=== PATIENT | female | born 1935 | race Caucasian/White ===

== ENCOUNTER 2016-11-09 07:15 | Inpatient (IN) | payer BC ==
[~2016-11-09 07:15] MED LIST: ACETAMINOPHEN 1000MG/100 ML PREMIX IV ONE; CEFAZOLIN 2 Gram 50 ML IVPB ONE; FAMOTIDINE 20MG TABLET PO ONE; MECLIZINE 25 MG TABLET PO ONE; METOCLOPRAMIDE 10 MG TABLET PO ONE
--- NOTE | 2016-11-09 07:45 | Rehab Joint Replacement Pre-Op ---
Rehab Joint Replacement Pre-Op - Pre-Op Visit Reviewed Items Scheduled for Post Op Visit: No Pre-Op Visit Comment: Pt anticipates transferring to [facility] for rehab after inpatient hospitalization. Preston Hose/Garment Measurement TKR - Knee High: Yes Exercise Reviewed: Yes Stair Climbing: Yes (Has basement stairs, laundry in basement.) Cane/Walker/Crutch Training: Yes Vend Equipment - Cane or Walker and OT Kit: N/A (Pt has her own walker from previous RTKA 2 yrs ago) List of Venders in the Area: No Shower Chair Transfers: Yes Car Transfers: Yes Bed Transfers: Yes Medical History Forms Issued: No Functional Scale Forms Issued: No
[2016-11-09] MEDS ORDERED: HYDROCODONE/APAP 5/325MG TABLET PO PRN (11:30)
[2016-11-09] MEDS ORDERED: MAGNESIUM HYDROXIDE 30 ML UDC PO PRN (11:30)
[2016-11-09] MEDS ORDERED: METOCLOPRAMIDE HCL 10 MG/2 ML VIAL IVP PRN (11:30)
[2016-11-09] MEDS ORDERED: DIPHENHYDRAMINE HCL 25 MG CAPSULE PO PRN (11:30)
[2016-11-09] MEDS ORDERED: ZOLPIDEM TARTRATE 5 MG TABLET PO PRN (11:30)
[2016-11-09] MEDS ORDERED: SENNOSIDES/DOCUSATE SODIUM UD CAPSULE PO PRN (11:30)
[2016-11-09] MEDS ORDERED: ACETAMINOPHEN/CODEINE TABLET PO PRN (11:30)
[2016-11-09] MEDS ORDERED: AL HYDROX/MAG HYDROX 30ML UD PO PRN (11:30)
[2016-11-09] MEDS: RINGERS SOLUTION,LACTATED 1,000 ML IV SCH (12:21)
[2016-11-09] MEDS ORDERED: TRANEXAMIC ACID 1,000 MG in 0.9 % SODIUM CHLORIDE 100ML 100 ML IVPB ONE (13:30)
[2016-11-09] MEDS: HYDROCODONE/APAP 5/325MG TABLET PO PRN (13:37)
[2016-11-09] MEDS: RIVASTIGMINE 4.6 MG TD SCH (13:38)
[2016-11-09] MEDS: PREVAGEN PO SCH (13:38)
[2016-11-09] MEDS ORDERED: TRANEXAMIC ACID 1,000 MG/10 ML ML IV ONE (13:39)
[2016-11-09] MEDS: CITALOPRAM 20 MG PO SCH (13:39)
[2016-11-09] MEDS ORDERED: BUPIVACAINE LIPOSOME 266MG/20ML VIAL IV ONE (13:39)
[2016-11-09] MEDS ORDERED: BUPIVACAINE 0.25% W/EPI MPF 30ML VIAL IVP ONE ×2 (13:39→14:50)
[2016-11-09] MEDS: SIMVASTATIN 10 MG PO SCH (13:40)
[2016-11-09] MEDS: HYDROMORPHONE HCL 1 MG/ML CPJ IVP PRN ×2 (13:51→17:02)
[2016-11-09] MEDS ORDERED: FENTANYL PF 100MCG/2ML VIAL IV ONE (14:31)
[2016-11-09] MEDS ORDERED: MIDAZOLAM HCL 2MG/2ML VIAL IV ONE (14:31)
[2016-11-09] MEDS ORDERED: *PACU ONLY* KETAMINE HCL 10 MG/ML (20ML) VIAL IV ONE (14:31)
--- NOTE | 2016-11-09 14:45 | Rehab Evaluation ---
Patient Information - Patient Information Diagnosis: OA with left TKA Ordered Treatment: PT Evaluate and Treat Status: Initial Evaluation Surgery: Yes (TKA left) Date of Surgery: 11/09/16 Past Medical/Surgical Hx: PAST MEDICAL/SURGICAL HISTORY Past Surgical History RTKA; appy, lung sx 93; shoulder; PMH - Respiratory Hx Respiratory Disorders Yes Hx Bronchitis Yes Hx Chronic Obstructive Yes Pulmonary Disease (COPD) Hx Pneumonia Yes: nothing recently Hx of URI Yes: a little cough yet & runny nose Hx of SOB Yes: exertional Comment: lung CA PMH - Cardiovascular Hx Cardiovascular Disorders Yes Hx Chest Pain Yes: "just from my cold"-none since 1 month ago Hx Deep Vein Thrombosis Yes: left calf 8 yrs ago Hx Edema Yes: left ankle slightly Hx Hypertension Yes Hx Palpitations Yes Exercise Tolerance Fair Comment: high chol PMH - Neuro Hx Neurological Disorders Yes Hx Dementia Yes Hx Dizziness Yes Hx Weakness Yes: both legs PMH - GI Hx Gastrointestinal Disorders Yes Hx Diverticulitis Yes Hx Gastroesophageal Reflux Yes Hx Hiatal Hernia Yes Hx Irritable Bowel Yes: not often Hx Weight Loss/Weight Gain Yes: 15 lbs /3-4 months PMH - Hx Genitourinary Disorders Yes Hx Bladder Problem Yes: "weak bladder"- wears depends PMH - Endocrine Hx Endocrine Disorders Yes Hx Thyroid Disease Yes PMH - Musculoskeletal Hx Musculoskeletal Disorders Yes Hx Arthritis Yes Hx Gout Yes Hx Osteoporosis No: "left arm" Comment: pt had osteomyelitis in 1968 (left arm) PMH - Psych Hx Psychiatric Problems Yes Hx Depression Yes PMH - Hematology/Oncology Hx Hematology/Oncology Yes Disorders Hx Bruising Yes: bruises easily Hx Cancer Yes: left lower lung resection Hx Blood Transfusion Reaction No Precautions: [place], Fall - Time With Patient Total Time Spent With Patient (Min): 30 Treatment Procedures: Detail (Patient seen in room and semi-seated in bed with CPM, cryocuff and compressive pads in place. Says willing to try exercises and sitting edge of bed. Still cannot feel left leg yet. Removed CPM, cryocuff and compressive pads then reviewed knee exercises with patient and assisted with heel slide and SLR for several reps. Patient required only min assist for supine to sit edge of bed with trapeze and FWW close. Agreed to try standing briefly and do weight shifting then sat edge of bed. Became lightheaded so got patient lying down again and put cold cloth on head and neck. Flattened patient out as became nauseous then replaced CPM, cryocuff, compressive pads and nursing came in to give pain med and something for nausea. Got patient warm blanket and nursing present to replace tray table after vitals taken as patient's blood pressure initially a little high.) Subjective Information - Subjective Information Per Patient (Patient and gave details of steps: patient has 3 to four steps to negotiate to get into house. Has everything else needs for going home with 's assist.) Objective Data - Pain Pain Present: Yes Pain Scale Used: Numeric (1 - 10) (4/10) - Mental Status Patient Orientation: Oriented x3 - Visual Perception Appears within normal limits for therapeutic activities - ROM Within normal limits (Except left knee 60 degrees flexion.) - Strength/Tone Within normal limits (Except left knee: quads 3-/5) - Coordination Appears within normal limits for therapeutic activities - Bed Mobility Needs Assist (Needed slight assist up in bed and moving with all attachments.) - Transfers Needs Assist (Needed slight assist for supine to sit to stand and back into bed : trapeze, FWW and PT) - Balance Balance Sitting: Good Balance Standing: Good - Sensation Intact - Gait Detail (Just stood today bedside, no gait. WBAT left LE.) - Special Tests No Therapy Assessment - Therapy Assessment Detail (Patient doing very well and should progress quickly so can go home tomorrow or day after.) Patient Education - Patient Education Teaching Topic: Equipment Use, Exercise/Activity Response: Return Demonstration Teaching Method: Demonstration Teaching Recipient: Patient, Family Barriers To Learning: None Problem List - Problem List Physical Therapy Problem List: Detail (Some issues with mobility yet, transfers , gait, stairs: deficits that should progressively improve.) Goals - Goals Physical Therapy Goals: 1. Patient will demonstrate good bed mobility and transfers before discharge home. 2. Patient will be able to demonstrate gait with FWW appropriate distances to go home. 3. ROM left knee will be appropriate for comfort to go home. Prognosis - Prognosis Good (Patient should be able to meet goals with treatment BID tomorrow and possibly Satur am if needed so safe to go home.) Plan - Plan Physical Therapy Plan: Patient to be seen BID tomorrow and possibly Sunday am if needed for safe transition to home.
[2016-11-09] MEDS: CEFAZOLIN 2 Gram 2 GM in DEXTROSE 1 BAG IVPB SCH ×2 (17:01→23:47)
[2016-11-09] MEDS: GABAPENTIN 300 MG PO SCH ×2 (17:02→21:41)
[2016-11-09] MEDS: ASPIRIN 325 MG TAB ENTERIC-COATED PO SCH (21:41)
[2016-11-10] MEDS: RINGERS SOLUTION,LACTATED 1,000 ML IV SCH ×2 (03:30→21:23)
[2016-11-10] MEDS: CEFAZOLIN 2 Gram 2 GM in DEXTROSE 1 BAG IVPB SCH ×2 (04:25→09:34)
[2016-11-10 06:38] LABS: HEMOGLOBIN 11.1 gm/dl (11.6-16.0); MEAN CELL VOLUME 89.2 fl (81-97); MEAN CORPUSCULAR HEMOGLOBIN 29.1 pg (27-33); MEAN CORPUSCULAR HGB CONC 32.6 g/dl (32-36); MEAN PLATELET VOLUME 8.8 fl (7.4-10.4); PLATELET COUNT 344 K/uL (130-400); RED BLOOD COUNT 3.81 M/uL (3.80-5.40); RED CELL DISTRIBUTION WIDTH 13.9 % (11.5-14.5); WHITE BLOOD COUNT W/O DIFF 12.7 K/uL (4.2-12.2)
[2016-11-10] MEDS: LEVOTHYROXINE 50 MCG PO SCH (06:44)
[2016-11-10] MEDS: PANTOPRAZOLE 40 MG PO SCH (06:44)
[2016-11-10] MEDS: HYDROCODONE/APAP 5/325MG TABLET PO PRN (06:47)
[2016-11-10 06:54] LABS: INR 1.01; PROTHROMBIN TIME (PATIENT) 11.4 SECONDS (9.5-12.1)
[2016-11-10] MEDS: ASPIRIN 325 MG TAB ENTERIC-COATED PO SCH ×2 (09:42→21:21)
[2016-11-10] MEDS: ONDANSETRON HCL IV 4 MG/2 ML VIAL IVP PRN (09:43)
[2016-11-10] MEDS: CELECOXIB 100 MG CAPSULE PO SCH (09:43)
[2016-11-10] MEDS: CITALOPRAM 20 MG PO SCH (09:48)
[2016-11-10] MEDS: GABAPENTIN 300 MG PO SCH ×4 (09:48→21:21)
[2016-11-10] MEDS: LOSARTAN 100 MG PO SCH (09:49)
[2016-11-10] MEDS: PREVAGEN PO SCH (09:49)
[2016-11-10] MEDS: SIMVASTATIN 10 MG PO SCH (09:50)
[2016-11-10] MEDS: RIVASTIGMINE 4.6 MG TD SCH (09:50)
--- NOTE | 2016-11-10 10:19 | Operative Note ---
DATE OF SURGERY: 11/09/2016. SURGEON: Dimitri Negron D.O. REFERRING PHYSICIAN: Preston Martinez M.D. PREOPERATIVE DIAGNOSIS: OSTEOARTHRITIS OF THE LEFT KNEE. POSTOPERATIVE DIAGNOSIS: OSTEOARTHRITIS OF THE LEFT KNEE. OPERATIVE PROCEDURE: Left total knee arthroplasty. DESCRIPTION OF PROCEDURE: This 81-year-old female was taken to the operating room and was placed in the supine position on the operating room table after spinal anesthesia was induced by the Department of Anesthesia. The left lower extremity was elevated. It was prepped with Hibiclens and draped in the usual sterile fashion. It was exsanguinated and the tourniquet was inflated to 300 mm Hg. All scrubbed personnel wore personal isolation suits. An anterior longitudinal midline incision was made followed by a medial peripatellar arthrotomy incision. An intracondylar drill hole was made for the intramedullary alignment yessenia and, because the patient had a mild flexion contracture, a 10-mm cut was made at 5-degree valgus on the distal femur. The wafer of bone was removed. The sizing jig was affixed, and a size 60 was seen to be the appropriate size. Subsequently the four-in-one cutting block was pinned in 3 degrees of external rotation and the appropriate cuts were made. We then directed our attention to the proximal tibia. An extramedullary alignment guide was used to cut the proximal tibia referencing a 10-mm cut off the lateral tibial plateau. After the appropriate alignment had been assured, a 3-degree posterior slope cut was made, and the wafer of bone was removed. Remnants of the menisci and osteophytes were removed from the posterior aspect of the joint. The wound was then copiously irrigated with lactated ringers solution. The tibia was sized to a size 67, and the stem punch was used. The patella was subsequently measured, cut, and restored to anatomic heights with a 31 x 6.2 mm patella. The trial components were inserted, and a size 11-mm bearing gave us the appropriate stability throughout the full range of motion. Full extension was restored with this bearing. All trial components were then removed, and the wound copiously irrigated with pulse lavage lactated ringers solution, removing all debris from the joint. All of the bony surfaces were dried. All components were cemented into place. Excess cement was removed after the insertion of each component. With the bony surfaces dried initially the tibial base plate was implanted followed by the insertion of the tibial bearing, subsequently the femur, and finally the patella. Once the cement had hardened, the knee was again taken through range of motion with excellent stability of the knee being identified. Exparel had been injected into the posteromedial and lateral corners of the joint as well as the periosteum and joint capsule of the proximal tibia and distal femur after the final components had been inserted. The wound was again irrigated with lactated ringers solution and suctioned. A drain was placed through a separate stab incision, and the arthrotomy incision was closed with a 2-0 Vicryl. The subcutaneous tissue was closed with 0 Vicryl. The skin was stapled and sterile dressings were applied with a Polar Care. The patient was taken to the recovery room in satisfactory condition. GROSS PATHOLOGY: This patient demonstrated severe osteoarthritis; this was tricompartmental disease with full-thickness articular cartilage loss noted on all four surfaces of the medial and lateral compartments as well as at the patellofemoral joint. FINAL COMPONENTS INSERTED: A Biomet Radha VanGuard size 60 cruciate-retaining femur and a size 67 tibia, an 11-mm anterior stabilized E1 bearing, and a 31 x 6.2 mm patella was used. Dimitri Negron D.O. Date Time Job Number: [id number] MTDD
--- NOTE | 2016-11-10 10:22 | Physical Therapy Tx Note ---
Physical Therapy Tx Note - Treatment Note Tolerated: Fair Total Time Spent With Patient: 30 Physical Therapy Tx Note: Detail (Patient very sleepy this am and has been painful and nauseous this am. Patient is also incontinent and has been using diapers rather than get up to BSC or bathroom. Nursing says meds may be affecting her too much. Patient was able to do knee exercises in bed before tried to sit up: able to assist with heel slides, SLR, quad, ham and glut sets and ankle pumps. Supine to sit with assist of trapeze and assist of one to edge of bed, dangled there shortly then mod to max assist of one to stand with FWW: patient barely able to stand and only stood for short time then back down to bed secondary to nausea and lightheadedness. No steps today, no weight shifting as able to do yesterday. Max assist up in bed and had to change pants and bed again secondary to incontinence.) Physical Therapy Problem List: Detail (Some issues with mobility yet, transfers , gait, stairs: deficits that should progressively improve.) Physical Therapy Goals: 1. Patient will demonstrate good bed mobility and transfers before discharge home. 2. Patient will be able to demonstrate gait with FWW appropriate distances to go home. 3. ROM left knee will be appropriate for comfort to go home. Prognosis: Moderate (Patient's condition this am has declined from yesterday but could be med related per nursing. Will continue to push function this afternoon.) Physical Therapy Plan: Patient to be seen BID tomorrow and possibly Sunday am if needed for safe transition to home.
[2016-11-10] MEDS: ACETAMINOPHEN/CODEINE TABLET PO PRN (14:21)
--- NOTE | 2016-11-10 15:39 | Physical Therapy Tx Note ---
Physical Therapy Tx Note - Treatment Note Tolerated: Fair (Patient still not able to help much with mobility and is still incontinent. Standing at bedside was not safe without max assist of two and FWW. Patient able to assist somewhat with knee exercises now and bed mobility: pivot to edge of bed with mod assist of one.) Total Time Spent With Patient: 30 Physical Therapy Tx Note: Detail (Patient seen in room and in bed with CPM on leg, has not been out of bed (up in chair) yet. Wearing diapers for incontinence and bed wet at this time. Removed CPM from bed, performed some exercises in bed then supine to sit with mod assist of one and trapeze to sit edge of bed, legs dangling. Able to scoot out for feet on floor for support, sit to stand with max assist of one but patient not able to stand fully upright secondary to pain at knee. Tried again to stand times 3 with max assist of two and patient able to stand fully upright with lots of cues and assist to hold her upright. Patient not really able yet to put all her own effort into standing: possibly a med issue yet. Back into bed with max assist of two and up in bed with max assist of two. Replaced CPM, cryocuff and compressive pads, tray table close and call light. present if needs further assist.) Physical Therapy Problem List: Detail (Some issues with mobility yet, transfers , gait, stairs: deficits that should progressively improve.) Physical Therapy Goals: 1. Patient will demonstrate good bed mobility and transfers before discharge. 2. Patient will be able to demonstrate gait with FWW appropriate distances for self care. 3. ROM left knee will be appropriate for this patient before rehab. Prognosis: Moderate (Patient is scheduled to go to [facility] facility on Sunday. Still not very mobile yet.) Physical Therapy Plan: Patient to be seen BID tomorrow and Sunday as needed for safe transition to [facility] facility.
[2016-11-11] MEDS: ACETAMINOPHEN/CODEINE TABLET PO PRN ×3 (04:56→16:29)
[2016-11-11] MEDS: LEVOTHYROXINE 50 MCG PO SCH ×2 (04:59→06:07)
[2016-11-11] MEDS: PANTOPRAZOLE 40 MG PO SCH ×2 (05:00→06:08)
[2016-11-11 06:34] LABS: HEMATOCRIT 31.9 % (35.0-47.0); HEMOGLOBIN 10.6 gm/dl (11.6-16.0); MEAN CELL VOLUME 89.1 fl (81-97); MEAN CORPUSCULAR HEMOGLOBIN 29.6 pg (27-33); MEAN CORPUSCULAR HGB CONC 33.2 g/dl (32-36); MEAN PLATELET VOLUME 9.2 fl (7.4-10.4); PLATELET COUNT 309 K/uL (130-400); RED BLOOD COUNT 3.58 M/uL (3.80-5.40); WHITE BLOOD COUNT W/O DIFF 10.3 K/uL (4.2-12.2)
[2016-11-11 06:41] LABS: INR 1.06
[2016-11-11] MEDS: CELECOXIB 100 MG CAPSULE PO SCH (09:53)
[2016-11-11] MEDS: GABAPENTIN 300 MG PO SCH ×3 (09:53→21:59)
[2016-11-11] MEDS: CITALOPRAM 20 MG PO SCH (09:55)
[2016-11-11] MEDS: LOSARTAN 100 MG PO SCH (09:58)
[2016-11-11] MEDS: SIMVASTATIN 10 MG PO SCH (09:58)
[2016-11-11] MEDS: PREVAGEN PO SCH (10:00)
[2016-11-11] MEDS: RIVASTIGMINE 4.6 MG TD SCH (10:02)
[2016-11-11] MEDS: ASPIRIN 325 MG TAB ENTERIC-COATED PO SCH ×2 (10:57→21:57)
--- NOTE | 2016-11-11 12:13 | Physical Therapy Tx Note ---
Physical Therapy Tx Note - Treatment Note Total Time Spent With Patient: 30 Physical Therapy Tx Note: Detail (supine<>sit, sit<>stand with cues for safety and min PA of 1 (loss of balance backward). Pt had to be told to lean toward walker. Ambulated with 2ww 20' x 2, resting in wc between. Pt c/o BUE pain during ambulation. Pt was unable to attempt stairs. Back to bed after PT session secondary to fatique. PM treatment supine<>sit & sit<> stand with cues for safety. Ambulation 65' x1 no stairs too tired, still c/o bilateral UE pain. walker 2ww used may need lowered one hole pt zuri much, cues help.) Physical Therapy Problem List: Detail (Some issues with mobility yet, transfers , gait, stairs: deficits that should progressively improve.) Physical Therapy Goals: 1. Patient will demonstrate good bed mobility and transfers before discharge. 2. Patient will be able to demonstrate gait with FWW appropriate distances for self care. 3. ROM left knee will be appropriate for this patient before rehab. Prognosis: Good Physical Therapy Plan: Patient to be seen BID tomorrow and Sunday as needed for safe transition to [facility] facility.
[2016-11-11] MEDS: ACETAMINOPHEN 325 MG TAB PO PRN (21:57)
[2016-11-12] MEDS: PANTOPRAZOLE 40 MG PO SCH (06:00)
[2016-11-12] MEDS: LEVOTHYROXINE 50 MCG PO SCH (06:00)
[2016-11-12 06:46] LABS: HEMATOCRIT 28.7 % (35.0-47.0); HEMOGLOBIN 9.3 gm/dl (11.6-16.0); MEAN CELL VOLUME 90.3 fl (81-97); MEAN CORPUSCULAR HEMOGLOBIN 29.2 pg (27-33); MEAN CORPUSCULAR HGB CONC 32.4 g/dl (32-36); MEAN PLATELET VOLUME 8.8 fl (7.4-10.4); PLATELET COUNT 282 K/uL (130-400); RED BLOOD COUNT 3.18 M/uL (3.80-5.40); RED CELL DISTRIBUTION WIDTH 13.8 % (11.5-14.5); WHITE BLOOD COUNT W/O DIFF 7.7 K/uL (4.2-12.2)
[2016-11-12 06:54] LABS: INR 0.96; PROTHROMBIN TIME (PATIENT) 10.8 SECONDS (9.5-12.1)
[2016-11-12] MEDS: ACETAMINOPHEN 325 MG TAB PO PRN ×2 (09:11→20:21)
[2016-11-12] MEDS: ASPIRIN 325 MG TAB ENTERIC-COATED PO SCH ×3 (09:12→22:09)
[2016-11-12] MEDS: CELECOXIB 100 MG CAPSULE PO SCH (09:12)
[2016-11-12] MEDS: GABAPENTIN 300 MG PO SCH ×4 (09:13→22:09)
[2016-11-12] MEDS: SIMVASTATIN 10 MG PO SCH (09:15)
[2016-11-12] MEDS: PREVAGEN PO SCH (09:16)
[2016-11-12] MEDS: CITALOPRAM 20 MG PO SCH (09:17)
[2016-11-12] MEDS: LOSARTAN 100 MG PO SCH (09:18)
[2016-11-12] MEDS: RIVASTIGMINE 4.6 MG TD SCH (09:19)
[2016-11-12] MEDS: ACETAMINOPHEN/CODEINE TABLET PO PRN (11:18)
[2016-11-12] MEDS: ONDANSETRON HCL IV 4 MG/2 ML VIAL IVP PRN ×2 (13:04→20:25)
--- NOTE | 2016-11-12 13:48 | Physical Therapy Tx Note ---
Physical Therapy Tx Note - Treatment Note Tolerated: Fair (Some issue with dizziness today. When patient up and ambulating with FWW, lost balance three times just walking around bed: PT assist to maintain upright. Patient able to WB more normally and using walker correctly so not sure what causing near fall issues except dizziness. Has not been eating normally yet either.) Total Time Spent With Patient: 30 Physical Therapy Tx Note: Detail (Patient seen bedside and sitting up in bed without sleepiness today. Supine to sit to stand with CGA only, ambulated with FWW around bed with min assist secondary to kept losing balance backward (legs did not give out). Nursing came in while trying to decide if should ambulate in yepez and suggested get back into bed and she would get another med to try to alleviate dizziness and previous nausea. Assisted patient into bed but able to do most of it herself with slight assist up in bed and used trapeze. Performed left LE exercises in the bed with isometrics and heel slides, SLR and ankle pumps without issue. Nursing checked vitals and re-attached leg compressive stockings and cryocuff then call light close.) Physical Therapy Problem List: Detail (Some issues with mobility yet, transfers , gait, stairs: deficits that should progressively improve.) Physical Therapy Goals: 1. Patient will demonstrate good bed mobility and transfers before discharge. 2. Patient will be able to demonstrate gait with FWW appropriate distances for self care. 3. ROM left knee will be appropriate for this patient before rehab. Prognosis: Good (Patient slowly coming around but dizzy today so may not see again. She is going to rehab tomorrow.) Physical Therapy Plan: Patient to be seen BID tomorrow and Sunday as needed for safe transition to [facility]. Patient not being released for rehab until Sunday so seen on Sunday as tolerated also for work on gait and ROM knee.
[2016-11-13] MEDS: LEVOTHYROXINE 50 MCG PO SCH (06:05)
[2016-11-13] MEDS: PANTOPRAZOLE 40 MG PO SCH (06:05)
[2016-11-13] MEDS: ACETAMINOPHEN 325 MG TAB PO PRN (06:05)
--- NOTE | 2016-11-13 07:19 | RADIOLOGY REPORT ---
EXAM: AP CHEST HISTORY: JAIL PLACEMENT. TECHNIQUE: AP view of the chest was obtained. Comparison: None. FINDINGS: The lungs are clear. Mediastinal clips are noted. The cardiomediastinal silhouette and diaphragm is unremarkable. Status post reversed total right shoulder arthroplasty. IMPRESSION: NO ACUTE INTRATHORACIC PROCESS. JOB NUMBER: [id number] MTDD
--- NOTE | 2016-11-13 08:35 | Discharge Summary ---
DATE OF ADMISSION: 11/09/16 DATE OF DISCHARGE: 11/12/16 ADMITTING DIAGNOSIS: OSTEOARTHRITIS OF THE LEFT KNEE. DISCHARGE DIAGNOSIS: OSTEOARTHRITIS OF THE LEFT KNEE. OPERATIVE PROCEDURE: Elective left total knee arthroplasty. DESCRIPTION: This 81-year-old female was admitted to the hospital for elective total knee arthroplasty and tolerated the operative procedure well, but the patient progressed quite slowly with physical therapy and the drain was removed the first postoperative day. Because of slow progress it was determined that she was going to need subacute rehab, arrangements were made transfer to [facility]. She will be transferred and discharged from the hospital on 11/12/16. She was instructed to wear her LASHAWN hose during the day and remove them at night. She will take Tylenol #3 one every four to six hours as necessary for pain and take aspirin 325 mg b.i.d. for two weeks. Routine wound care instructions were given. She will follow-up in my clinic in two weeks for staple removal. Should she have any problems prior to being seen she is instructed to call my office. JEFFY MONTALVO D.O. Date & Time JOB NUMBER: [id number] MTDD
[2016-11-13] MEDS: CELECOXIB 100 MG CAPSULE PO SCH (09:43)
[2016-11-13] MEDS: GABAPENTIN 300 MG PO SCH (09:44)
[2016-11-13] MEDS: ASPIRIN 325 MG TAB ENTERIC-COATED PO SCH (09:44)
[2016-11-13] MEDS: CITALOPRAM 20 MG PO SCH (09:45)
[2016-11-13] MEDS: LOSARTAN 100 MG PO SCH (09:45)
[2016-11-13] MEDS: RIVASTIGMINE 4.6 MG TD SCH (09:46)
[2016-11-13] MEDS: PREVAGEN PO SCH (09:46)
[2016-11-13] MEDS: SIMVASTATIN 10 MG PO SCH (09:47)
== END 2016-11-13 10:55 | DRG 470 ==
LOC: MEDSURG 07:15
PROVIDERS: ADMIT Orthopaedic Surgery; ATTEND Orthopaedic Surgery
PROC: 0SRD0J9 Replacement of Left Knee Joint with Synthetic Substitute, Cemented, Open Approach (ICD-10-PCS; principal; 2016-11-09 09:30)
DX: M17.12 Unilateral primary osteoarthritis, left knee (principal); E03.9 Hypothyroidism, unspecified
CPT/HCPCS: 71010; 85025; 85610; 94761; 97110; 97116; 97161; 97530; J1170; J2405; J7120